=== PATIENT | male | born 1940 | race Two or more races ===

== ENCOUNTER 2019-11-12 07:42 | Day surgery (SDC) | payer MEDICARE, OTHER ==
[2019-11-12] VITALS (12 sets, daily range): BP systolic 114–148; BP diastolic 57–74
[~2019-11-12] VITALS: Ht 157.5 cm; Wt 79.4 kg
[~2019-11-12 07:42] MED LIST: ATORVASTATIN CA20 MG ORAL; ELIQUIS5 MG PO; FERROUS SULFAT325 MG ORAL; FISH OIL CAP1000 MG ORAL; FLOMAX0.4 MG ORAL; HYDRALAZINE HC100 MG ORAL; JANUMET XR 50-1 EAC1 ORAL; K-TAB10 MEQ PO; MAGNESIUM500 MG PO; METOPROLOL SUC100 MG ORAL; NORVASC5 MG ORAL; PLAVIX75 MG ORAL; PROSCAR5 MG ORAL; Vit D3 PO; ceFAZolin sod 1 GM in NS 55 ML IVPB ONE; thyroxine PO
[2019-11-12] MEDS ORDERED: Rocuronium Bromide 100mg/10ml Inj IV ONE (09:25)
[2019-11-12] MEDS ORDERED: Midazolam 2mg/2ml Inj ONE (09:27)
[2019-11-12] MEDS ORDERED: Morphine Sulfate 10mg/ml Inj ONE (09:27)
[2019-11-12 09:34] LABS: INR 0.9 (0.9-1.1)
[2019-11-12] MEDS ORDERED: NITROGLYCERIN 50 MG/10 ML IV ONE (09:40)
[2019-11-12] MEDS ORDERED: Bupivacaine 0.5% Inj 30 ml vial INJ ONE (09:45)
[2019-11-12] MEDS ORDERED: Bupivacaine w/Epi 0.5% 30ml Vial INJ ONE (09:45)
[2019-11-12] MEDS ORDERED: ProvayBlue 5mg/ml 10ml amp INJ ONE (09:45)
--- NOTE | 2019-11-12 09:57 | Anethesia Preoperative Eval ---
Anesthesia Pre-op PMH/ROS General Date of Evaluation: Nov 12, 2019 Time of Evaluation: 09:30 Anesthesiologist: gay ASA Score: ASA 3 Mallampati Score Class I : Soft palate, uvula, fauces, pillars visible Class II: Soft palate, uvula, fauces visible Class III: Soft palate, base of uvula visible Class IV: Only hard plate visible Mallampati Classification: Class III Surgeon: Sobia Diagnosis: Urethral stricture Surgical Procedure: anterior urethroplasty Anesthesia History: none Social History: smoking, current smoker Family History: no anesthesia problems Allergies: Coded Allergies: No Known Allergies (Unverified , 11/11/19) Medications: see eMAR Patient NPO?: Yes NPO Date: Nov 12, 2019 NPO Time: 00:01 Past Medical History Cardiovascular: Reports: HTN, CAD, [place] - CABG 2006; pacemaker , arrhythmia - chronic afib on plavix Pulmonary: Reports: COPD Gastrointestinal/Genitourinary: Denies: GERD, CRI, ESRD, other Neurologic/Psychiatric: Denies: dementia, CVA, depression/anxiety, TIA, other Endocrine: Reports: DM HEENT: Denies: cataract (L), cataract (R), glaucoma, COUNCIL (L), COUNCIL (R), other Hematology/Immune: Denies: anemia, DVT, bleeding disorder, other Musculoskeletal/Integumentary: Denies: OA, RA, DJD, DDD, edema, other Other: obesity PSxH Narrative: CABG Anesthesia Pre-op Phys. Exam Physician Exam Last Vital Signs Date Time Temp Pulse Resp B/P (MAP) Pulse Ox O2 Delivery O2 Flow Rate FiO2 11/12/19 08:28 97.6 69 18 143/74 98 Room Air Constitutional: NAD Neurologic: CN 2-12 intact Cardiovascular: other - pacemaker Respiratory: CTA Gastrointestinal: S/NT/ND Airway Exam Mallampati Classification 3 Mallampati Score: Class III Neck: thick Dentures: upper, lower Anesthesia Pre-op A/P Labs Coagulation Test 11/12/19 09:00 Prothrombin Time 10.3 SEC (9.30-11.50) Prothromb Time International Ratio 0.9 (0.9-1.1) Activated Partial Thromboplast Time 30 SEC (23-33) Accucheck 100 Risk Assessment & Plan Assessment: covid 19 neg; denies cp sob or changes in health the last month. cardiac clearance and nuclear study done. Plan: General Status Change Before Surgery: No Pre-Antibiotics Drug: ancef Given Within 1 Hr of Incision: Yes Time Given: 10:20 Yue Carpio CRNA Nov 12, 2019 09:57
[2019-11-12] MEDS ORDERED: Acetaminophen (Non formulary) 100 ML IV ONE (10:00)
[2019-11-12] MEDS ORDERED: NS Irrig 1000ml ONE (10:00)
[2019-11-12] MEDS ORDERED: NS Irrig 2000ml IRRIG ONE (10:00)
[2019-11-12] MEDS ORDERED: fentaNYL 100 mcg/2 mL IV PRN (10:00)
[2019-11-12] MEDS ORDERED: LR 1000ml ONE (10:00)
[2019-11-12] MEDS ORDERED: Sterile Water Irrig 1000ml IRRIG ONE (10:00)
[2019-11-12] MEDS ORDERED: Hydromorphone 0.5mg/0.5ml inj IVP PRN (10:00)
--- NOTE | 2019-11-12 10:19 | Pre-Procedure Note/Attestation ---
Pre-Procedure Note/Attestation Complete Prior to Procedure Planned Procedure: not applicable Procedure Narrative: anterior urethroplasty Indications for Procedure Pre-Operative Diagnosis: urethral stricture Attestation I attest that I discussed the nature of the procedure; its benefits; risks and complications; and alternatives (and the risks and benefits of such alternatives ), prior to the procedure, with the patient (or the patient's legal statement services representative). I attest that, if there was a reasonable possibility of needing a blood transfusion, the patient (or the patient's legal statement services representative) was given the [facility] standardized written summary, pursuant to the Iftikhar Jose Blood Safety Act ([place] Health and Safety Code # 1645, as amended). I attest that I re-evaluated the patient just prior to the surgery and that there has been no change in the patient's H&P, except as documented below: Mervin Ramsay MD Nov 12, 2019 10:19
[2019-11-12] MEDS ORDERED: ePHEDrine 50mg/ml Inj ONE (10:33)
[2019-11-12] MEDS ORDERED: fentaNYL 100 mcg/2 mL IV ONE (10:50)
[2019-11-12] MEDS ORDERED: Lidocaine 1% MPF 10mg/ml 5ml ONE (10:54)
[2019-11-12] MEDS ORDERED: Neosporin Oint Ud Pkt TOPIC ONE (11:02)
[2019-11-12] MEDS ORDERED: HYDROmorphone 1mg/ml Carpuject SUBQ PRN (11:15)
[2019-11-12] MEDS ORDERED: Tylenol #3 tab (300mg/30mg) ORAL PRN (11:15)
[2019-11-12] MEDS ORDERED: HYDROcodone/Acetamin 5/325 tab ORAL PRN (11:15)
--- NOTE | 2019-11-12 11:25 | Brief Operative Note ---
Immediate Post Operative Note Operative Note Pre-op Diagnosis: urethral stricture Procedure: anteror urethroplasty , cystoscopy Post-op Diagnosis: same Surgeon: Tommie Ramsay Anesthesia: general Specimen: none Complications: none Condition: stable Fluids: 500 Estimated Blood Loss: minimal Implant(s) used?: No Mervin Ramsay MD Nov 12, 2019 11:25
--- NOTE | 2019-11-12 11:28 | Immediate Post-Op Evaluation ---
Immediate Post-Op Evalulation Immediate Post-Op Evalulation Procedure: anterior uteroplasty; cystoscopy Date of Evaluation: Nov 12, 2019 Time of Evaluation: 11:27 IV Fluids: 500 Blood Products: 0 Estimated Blood Loss: 5 Blood Pressure Systolic: 124 Blood Pressure Diastolic: 63 Pulse Rate: 69 Respiratory Rate: 14 O2 Sat by Pulse Oximetry: 99 Temperature (Fahrenheit): 97.7 Nausea: No Vomiting: No Patient Status: awake, reacts, patent Hydration Status: adequate Drug: ancef Given Within 1 Hr of Incision: Yes Time Given: 10:20 Yue Carpio CRNA Nov 12, 2019 11:28
--- NOTE | 2019-11-12 11:48 | 48 Hour Post Anesthesia Eval ---
Post Anesthesia Evaluation Procedure: anterior uteroplasty; cystoscopy Date of Evaluation: Nov 12, 2019 Time of Evaluation: 11:47 Blood Pressure Systolic: 148 0: 62 Pulse Rate: 69 Respiratory Rate: 14 O2 Sat by Pulse Oximetry: 98 Airway: patent Nausea: No Vomiting: No Hydration Status: adequate Cardiopulmonary Status: stable Mental Status/LOC: patient returned to baseline Post-Anesthesia Complications: none Follow-up care needed: N/A Yue Carpio CRNA Nov 12, 2019 11:48
[2019-11-12] MEDS ORDERED: D5 1/2NS 1,000 ML IV SCH (15:00)
--- NOTE | 2019-11-17 22:00 | Operative Note - Dictated ---
DATE OF OPERATION: 11/12/2019 PREOPERATIVE DIAGNOSIS: Distal anterior urethral stricture. POSTOPERATIVE DIAGNOSIS: Distal anterior urethral stricture. OPERATION: Anterior urethroplasty and cystoscopy. GENETICS TEACHER: Mervin Ramsay MD ANESTHESIA: General. FINDINGS: Tight stenosis of the distal urethral stricture with scar tissue. INDICATIONS FOR SURGERY: Patient had recurrent problems with his urinary stream and infection. He had developed a stricture in the anterior urethra, which was dilated several times. Despite that, it was recurrent strictures. Treatment options were explained to him in great length including also potential complications of the above procedure. He understands this and signed the consent. DESCRIPTION OF OPERATION: He was brought to the operating room, placed in supine position. Prepped and draped standard fashion. Under general anesthesia, an incision was made in the ventral and dorsal penis. Urethra was dissected all the way down approximately 1.5 cm from the surrounding adhesions. Scar tissue was excised. The urethra was then reapproximated with 5-0 plain catgut sutures. Cystoscopy showed no evidence of distal urethral strictures. Freedman catheter 20-[place] was placed and pressure dressing. Patient tolerated the procedure well. No evidence of complications. Mervin Ramsay M.D. DR: ALBERT JOB#: [id number] CC: WHITNEY
== END 2019-11-12 13:25 | disposition home or self-care (01) ==
LOC: SUR 07:42
DX: N35.914 Unspecified anterior urethral stricture, male (principal); I11.9 Hypertensive heart disease without heart failure; I25.10 Atherosclerotic heart disease of native coronary artery without angina pectoris; J44.9 Chronic obstructive pulmonary disease, unspecified; E11.9 Type 2 diabetes mellitus without complications; E66.9 Obesity, unspecified; F17.200 Nicotine dependence, unspecified, uncomplicated; Z79.02 Long term (current) use of antithrombotics/antiplatelets; I25.2 Old myocardial infarction; Z95.1 Presence of aortocoronary bypass graft; Z95.0 Presence of cardiac pacemaker; L90.5 Scar conditions and fibrosis of skin
CPT/HCPCS: 36415; 53410; 85610; 85730; 94003; J0131; J0690; J2250; J2270; J2405; J2704; J3010; J7120; 94150